=== PATIENT | female | born 1950 | race Two or more races ===

== ENCOUNTER 2018-11-15 11:59 | Inpatient (IN) | payer OTHER ==
[~2018-11-15] VITALS: Ht 160 cm; Wt 91.2 kg
[2018-11-27] MEDS ORDERED: ENALAPRIL MALEA10 MG PO (15:00)
[2018-11-27] MEDS ORDERED: AMBIEN10 MG PO (15:01)
[2018-11-27] MEDS ORDERED: PAROXETINE HCL20 MG PO (15:01)
[2018-11-27] MEDS ORDERED: ASPIRIN81 M1 PO (15:02)
[2018-11-27] MEDS ORDERED: CLONAZEPAM0.5 MG PO (15:02)
[2018-12-07] MEDS ORDERED: OMEPRAZOLE20 M1 PO (11:49)
[2018-12-07] MEDS ORDERED: INTESTINEX680 M1 PO (11:49)
[2018-12-07] MEDS ORDERED: PERCOCET 5-3251 EACH PO (11:49)
== END 2018-12-08 15:28 | disposition home or self-care (01) | DRG 330 ==
LOC: EDBD 11-27 11:15 → SURG 11-27 11:15 → O/R 12-04 09:21 → SURH 12-04 09:21 → SURG 12-04 11:15 → SURH 12-04 18:12
PROVIDERS: ADMIT Surgery
PROC: 07TD4ZZ Resection of Aortic Lymphatic, Percutaneous Endoscopic Approach (ICD-10-PCS; 2018-12-04)
PROC: 4A12X4Z Monitoring of Cardiac Electrical Activity, External Approach (ICD-10-PCS; 2018-12-04)
PROC: 0DTF4ZZ Resection of Right Large Intestine, Percutaneous Endoscopic Approach (ICD-10-PCS; principal; 2018-12-04 17:45)
DX: C18.0 Malignant neoplasm of cecum (principal); K92.1 Melena; R59.0 Localized enlarged lymph nodes; I11.9 Hypertensive heart disease without heart failure; G47.09 Other insomnia; G47.33 Obstructive sleep apnea (adult) (pediatric)

== ENCOUNTER 2018-11-21 11:37 | Outpatient (CLI) | payer OTHER | END 2018-11-21 11:39 | disposition home or self-care (01) | LOC: RAD 11:37 | DX: C18.0 Malignant neoplasm of cecum (principal); R59.0 Localized enlarged lymph nodes; K92.1 Melena; K59.09 Other constipation ==

== ENCOUNTER 2023-03-20 15:35 | Outpatient (CLI) | payer OTHER ==
[~2023-03-20 15:35] MED LIST: AMBIEN10 MG PO; ASPIRIN81 M1 PO; CLONAZEPAM0.5 MG PO; ENALAPRIL MALEA10 MG PO; INTESTINEX680 M1 PO; OMEPRAZOLE20 M1 PO; PAROXETINE HCL20 MG PO; PERCOCET 5-3251 EACH PO
== END 2023-03-20 15:40 | disposition home or self-care (01) ==
LOC: RAD 15:35
DX: Z01.811 Encounter for preprocedural respiratory examination (principal); R06.02 Shortness of breath